=== PATIENT | male | born 1980 | race Caucasian/White ===

== ENCOUNTER 2022-04-14 14:16 | Emergency (ER) | payer MEDICAID ==
[~2022-04-14] VITALS: Ht 188 cm; Wt 127.0 kg
[2022-04-14] MEDS ORDERED: NACL 0.9% 1,000 ML IV ONE (14:20)
--- NOTE | 2022-04-14 14:20 | NUR ---
[facility] ALS TO ER BED 3
[2022-04-14 14:28] VITALS: BP 155/85
--- NOTE | 2022-04-14 14:39 | NUR ---
xray at bedside
--- NOTE | 2022-04-14 14:40 | NUR ---
Juanito null in [facility] - 04/14/22 at 1442 by NATALIE RAD AT BEDSIDE
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
[2022-04-14 15:12] LABS: BASOPHILS # (AUTO) 0.1 K/uL (0.00-0.22); BASOPHILS % (AUTO) 0.7 % (0.0-2.0); EOSINOPHILS # (AUTO) 0.3 K/uL (0-0.4); EOSINOPHILS % (AUTO) 2.2 % (0.0-4.0); HEMATOCRIT 44.1 % (36-52); HEMOGLOBIN 14.9 g/dL (12.0-18.0); LYMPHOCYTES # (AUTO) 3.2 K/uL (2.0-11.5); LYMPHOCYTES % (AUTO) 24.9 % (20.5-51.1); MEAN CORPUSCULAR HEMOGLOBIN 31 pg (27-31); MEAN CORPUSCULAR HGB CONC 34 g/dL (33-37); MEAN CORPUSCULAR VOLUME 90.7 fL (80-94); MONOCYTES # (AUTO) 0.8 K/uL (0.8-1.0); NEUTROPHILS # (AUTO) 8.6 K/uL (1.8-7.7); NEUTROPHILS % (AUTO) 66.2 % (42.2-75.2); PLATELET COUNT (AUTO) 237 K/uL (140-450); RED BLOOD CELL COUNT(AUTO) 4.86 MIL/uL (4.20-6.10); RED CELL DISTRIBUTION WIDTH 12.6 % (11.6-13.7); WHITE BLOOD COUNT (AUTO) 12.9 K/uL (4.8-10.8)
--- NOTE | 2022-04-14 15:42 | NUR ---
DR GRAHAM MADE AWARE OF HR 130-140S DESPITE BOLUS GIVEN
[2022-04-14 15:45] LABS: ANION GAP 19.3 (8-16); CHLORIDE 102 mmol/L (98-107); CREATININE 1.1 mg/dL (0.6-1.3); GFR ARICAN-AMERICAN 94 mL/min (>90); GLUCOSE 226 mg/dL (74-106); POTASSIUM 3.3 mmol/L (3.5-5.1); SODIUM SERUM 139 mmol/L (136-145); UREA NITROGEN, BLOOD 12 mg/dL (7-18)
[2022-04-14] MEDS ORDERED: MIDAZOLAM 2 MG/2 ML VIAL IVP ONE ×2 (15:45→17:20)
[2022-04-14 16:04] LABS: ALBUMIN 3.8 g/dL (3.4-5.0); ASPARTATE AMINOTRANSFERASE 42 U/L (15-37); TOTAL BILIRUBIN 0.9 mg/dL (0.0-1.0)
[2022-04-14 16:08] LABS: ACETAMINOPHEN < 0.5 ug/ml (10-30); SALICYLATE < 2.8 mg/dL (2.8-20.0)
--- NOTE | 2022-04-14 18:09 | NUR ---
HR DECREASED TO 118 AFTER MEDICATION, SEE EMAR.
[2022-04-14 18:48] VITALS: BP 121/74
--- NOTE | 2022-04-14 18:48 | NUR ---
Patient discharged with v/s stable. Written and verbal after care instructions given and explained. Patient verbalized understanding. Ambulatory with steady gait. All questions addressed prior to discharge. Advised to follow up with PMD.
== END 2022-04-14 18:48 | disposition home or self-care (01) ==
LOC: MED 14:16
DX: T40.601A Poisoning by unspecified narcotics, accidental (unintentional), initial encounter (principal); R41.82 Altered mental status, unspecified; Y92.89 Other specified places as the place of occurrence of the external cause
CPT/HCPCS: 36415; 71045; 80053; 84484; 85025; 93005; 96361; 96374; 96376; 99291; 99292; G0480; G0482; J2250; J7030; Q0092